=== PATIENT | male | born 1995 ===

== ENCOUNTER 2018-09-09 17:23 | Inpatient (IN) ==
[2018-09-09 18:59] LABS: Apearance,Urine CLEAR (Clear); Bilirubin,Urine Moderate mg/dL (Negative); Blood, Urine Negative (Negative); Glucose,Urine (UA) Negative (Negative); Ketones,Urine 20 mg/dL (Negative); Mucus,Urine Many /LPF (Occasional); Nitrite,Urine Negative (Negative); Protein,Urine 30 MG/DL; RBC,Urine 1 /HPF (0-4); Urine Color Amber (Yellow); Urine Specific Gravity 1.027 (1.001-1.035); WBC,Urine 4 /HPF (0-6)
[2018-09-09 19:03] LABS: Barbiturates Screen,Urine Negative (Negative); Benzodiazepines Screen,Urine Negative (Negative); Cannabinoid Screen,Urine Negative (Negative); Opiate Screen,Urine Negative (Negative); Phencyclidine Screen,Urine Negative (Negative)
[2018-09-09 19:09] LABS: Basophils # 0.1 10*3/uL (0.0-0.2); Basophils % 0.8 % (0.0-0.8); Eosinophils % 0.3 % (0.00-10.9); Hematocrit 48.6 VOL% (42.0-52.0); Hemoglobin 16.5 GM/DL (14.0-18.0); Immature Granulocytes % 0.2 %; Immature Granulocytes Absolute 0.01 #; Lymphocytes # 2.7 10*3/uL (1.4-4.0); Lymphocytes % 43.1 % (21.2-54.2); Mean Corpuscular Hemoglobin 29 PG (27-34); Mean Corpuscular Volume 85.9 FL (87-102); Mean Platelet Volume 9.8 FL (9.6-12.0); Monocytes # 0.6 10*3/uL (0.11-0.8); Monocytes % 9.6 % (1.7-12.7); Neutrophils # 2.8 10*3/uL (1.4-7.4); Platelet Count 284 T/CUMM (130-400); Red Blood Count 5.66 MC/CUMM (3.8-5.5); Red Cell Distribution Width 11.9 % (9.3-17.3); White Blood Count 6.2 T/CUMM (4-12)
[2018-09-09] MEDS ORDERED: ONDANSETRON 4 MG/2 ML VIAL IV PRN (19:28)
[2018-09-09] MEDS ORDERED: DOCUSATE SODIUM 100 MG CAPSULE PO PRN (19:28)
[2018-09-09 19:34] LABS: Albumin 4.3 G/DL (3.4-5.0); Bilirubin,Total 3.6 MG/DL (0.2-1.0); Calcium 9.7 MG/DL (8.5-10.1); Osmolality,Calculated 266.2 MOS/KG (273-304); Potassium 3.8 MMOL/L (3.5-5.1); Total Protein 8.2 G/DL (6.4-8.3)
[2018-09-09] MEDS: SODIUM CHLORIDE 0.9% 1,000 ML IV SCH (20:51)
[2018-09-09] MEDS: HYDROmorphone 2 MG/1 ML VIAL IV PRN (20:55)
[2018-09-10 05:07] LABS: Basophils # 0.1 10*3/uL (0.0-0.2); Basophils % 0.6 % (0.0-0.8); Eosinophils # 0.1 10*3/uL (0.0-0.87); Eosinophils % 0.8 % (0.00-10.9); Hematocrit 45.1 VOL% (42.0-52.0); Hemoglobin 15.1 GM/DL (14.0-18.0); Immature Granulocytes % 0.4 %; Immature Granulocytes Absolute 0.03 #; Lymphocytes # 3.9 10*3/uL (1.4-4.0); Lymphocytes % 50.5 % (21.2-54.2); Mean Corpuscular HGB Conc 33.5 GM/DL (32-36); Mean Corpuscular Hemoglobin 29 PG (27-34); Mean Corpuscular Volume 86.9 FL (87-102); Mean Platelet Volume 9.9 FL (9.6-12.0); Monocytes # 0.8 10*3/uL (0.11-0.8); Monocytes % 9.9 % (1.7-12.7); Neutrophils # 2.9 10*3/uL (1.4-7.4); Neutrophils % 37.8 % (38.7-73.9); Platelet Count 268 T/CUMM (130-400); Red Blood Count 5.19 MC/CUMM (3.8-5.5); Red Cell Distribution Width 11.9 % (9.3-17.3); White Blood Count 7.7 T/CUMM (4-12)
[2018-09-10 05:28] LABS: Hypochromasia 1+; Lymphocytes 53 % (20-55); Platelet Estimate Adequate; Segmented Neutrophils 43 % (50-85); Total Cells Counted 100
[2018-09-10 05:30] LABS: Albumin 3.5 G/DL (3.4-5.0); Calcium 9.5 MG/DL (8.5-10.1); Osmolality,Calculated 267.1 MOS/KG (273-304); Potassium 3.7 MMOL/L (3.5-5.1); Risk Ratio 5.11; Total Protein 7.4 G/DL (6.4-8.3)
[2018-09-10] MEDS: SODIUM CHLORIDE 0.9% 1,000 ML IV SCH ×2 (06:30→17:00)
[2018-09-10] MEDS: HYDROmorphone 2 MG/1 ML VIAL IV PRN ×4 (06:33→23:03)
[2018-09-10] MEDS: PANTOPRAZOLE 40 MG VIAL IV SCH (09:42)
[2018-09-10 20:05] LABS: Hepatitis A Ab IgM Quant 0.14 Index; Hepatitis A Ab IgM Result Negative (Negative); Hepatitis B Core IgM Quant 0.13 Index; Hepatitis B Core IgM Result Negative (Negative); Hepatitis B Surface Ag Quant < 0.10 Index; Hepatitis B Surface Ag Result Negative (Negative); Hepatitis C Virus Ab Quant 0.07 Index; Hepatitis C Virus Ab Result Negative (Negative)
[2018-09-11] MEDS: SODIUM CHLORIDE 0.9% 1,000 ML IV SCH ×2 (01:32→13:49)
[2018-09-11 05:14] LABS: Basophils # 0.1 10*3/uL (0.0-0.2); Basophils % 0.7 % (0.0-0.8); Eosinophils # 0.1 10*3/uL (0.0-0.87); Eosinophils % 1.3 % (0.00-10.9); Hematocrit 41.2 VOL% (42.0-52.0); Hemoglobin 13.9 GM/DL (14.0-18.0); Immature Granulocytes % 0.3 %; Immature Granulocytes Absolute 0.02 #; Lymphocytes # 3.8 10*3/uL (1.4-4.0); Lymphocytes % 55.4 % (21.2-54.2); Mean Corpuscular HGB Conc 33.7 GM/DL (32-36); Mean Corpuscular Hemoglobin 29 PG (27-34); Mean Corpuscular Volume 86.9 FL (87-102); Mean Platelet Volume 10.2 FL (9.6-12.0); Monocytes # 0.7 10*3/uL (0.11-0.8); Monocytes % 10.3 % (1.7-12.7); Neutrophils # 2.2 10*3/uL (1.4-7.4); Platelet Count 244 T/CUMM (130-400); Red Blood Count 4.74 MC/CUMM (3.8-5.5); Red Cell Distribution Width 11.9 % (9.3-17.3); White Blood Count 6.8 T/CUMM (4-12)
[2018-09-11 05:17] LABS: PT Patient Result 10.7 SECS
[2018-09-11 05:22] LABS: Albumin 3.3 G/DL (3.4-5.0); Bilirubin,Total 1.9 MG/DL (0.2-1.0); Calcium 8.6 MG/DL (8.5-10.1); Osmolality,Calculated 267.1 MOS/KG (273-304); Potassium 3.7 MMOL/L (3.5-5.1); Total Protein 6.7 G/DL (6.4-8.3)
[2018-09-11 05:35] LABS: Lymphocytes 55 % (20-55); Segmented Neutrophils 36 % (50-85); Total Cells Counted 100
[2018-09-11 05:36] LABS: Atypical Lymphocytes Few; Hypochromasia 1+; Platelet Estimate Adequate
[2018-09-11] MEDS: amLODIPine 10 MG TABLET PO SCH (08:24)
[2018-09-11] MEDS: PANTOPRAZOLE 40 MG VIAL IV SCH (09:06)
[2018-09-11] MEDS: HYDROmorphone 2 MG/1 ML VIAL IV PRN ×2 (09:34→19:40)
[2018-09-11] MEDS ORDERED: LIDOCAINE 2% 5 ML VIAL ONE (10:00)
[2018-09-11] MEDS ORDERED: ONDANSETRON 4 MG/2 ML VIAL ONE (10:00)
[2018-09-11] MEDS ORDERED: PROPOFOL 200 MG/20 ML VIAL IV ONE (10:00)
[2018-09-11] MEDS ORDERED: SEVOFLURANE 1 UNIT/15 MINUTE INH ONE ×2 (10:00→12:01)
[2018-09-11] MEDS ORDERED: SUCCINYLCHOLINE 200 MG/10 ML VIAL ONE (10:00)
[2018-09-11] MEDS ORDERED: fentaNYL 100 MCG/2 ML VIAL ONE ×2 (10:00→10:32)
[2018-09-11] MEDS ORDERED: ROCURONIUM 100 MG/10 ML VIAL IV ONE (10:00)
[2018-09-11] MEDS ORDERED: MIDAZOLAM 2 MG/2 ML VIAL ONE ×2 (10:00→10:32)
[2018-09-11] MEDS ORDERED: DEXAMETHASONE 4 MG/1 ML VIAL ONE (10:00)
[2018-09-11] MEDS ORDERED: INDOMETHACIN SUPP 50 MG SUPP RECTAL ONE (10:54)
[2018-09-11] MEDS ORDERED: GLUCAGON 1 MG VIAL ONE (11:01)
[2018-09-11] MEDS ORDERED: NEOSTIGMINE 10 MG/10 ML VIAL ONE (12:01)
[2018-09-11] MEDS ORDERED: amLODIPine 10 MG TABLET PO ONE (12:25)
[2018-09-11] MEDS ORDERED: LACTATED RINGERS 500 ML IV ONE (13:46)
[2018-09-12] MEDS: SODIUM CHLORIDE 0.9% 1,000 ML IV SCH ×3 (00:39→18:47)
[2018-09-12 05:01] LABS: Basophils % 0.2 % (0.0-0.8); Eosinophils % 0.1 % (0.00-10.9); Hemoglobin 14.3 GM/DL (14.0-18.0); Immature Granulocytes % 0.4 %; Immature Granulocytes Absolute 0.04 #; Lymphocytes # 2.3 10*3/uL (1.4-4.0); Lymphocytes % 23.2 % (21.2-54.2); Mean Corpuscular HGB Conc 33.3 GM/DL (32-36); Mean Corpuscular Hemoglobin 29 PG (27-34); Mean Corpuscular Volume 86.7 FL (87-102); Mean Platelet Volume 10.5 FL (9.6-12.0); Monocytes # 0.9 10*3/uL (0.11-0.8); Monocytes % 9.5 % (1.7-12.7); Neutrophils # 6.5 10*3/uL (1.4-7.4); Neutrophils % 66.6 % (38.7-73.9); Platelet Count 273 T/CUMM (130-400); Red Blood Count 4.96 MC/CUMM (3.8-5.5); Red Cell Distribution Width 11.8 % (9.3-17.3); White Blood Count 9.7 T/CUMM (4-12)
[2018-09-12 05:16] LABS: Albumin 3.5 G/DL (3.4-5.0); Bilirubin,Total 1.3 MG/DL (0.2-1.0); Calcium 8.4 MG/DL (8.5-10.1); Osmolality,Calculated 273.7 MOS/KG (273-304); Potassium 3.5 MMOL/L (3.5-5.1)
[2018-09-12] MEDS: amLODIPine 10 MG TABLET PO SCH (08:41)
[2018-09-12] MEDS: HYDROmorphone 2 MG/1 ML VIAL IV PRN ×3 (08:50→20:31)
[2018-09-12] MEDS: PANTOPRAZOLE 40 MG VIAL IV SCH (09:12)
[2018-09-12] MEDS ORDERED: LIDOCAINE 1% 20 ML VIAL ONE (14:00)
[2018-09-12] MEDS ORDERED: MEPERIDINE 25 MG/1 ML VIAL ONE (16:36)
[2018-09-12] MEDS ORDERED: PROPOFOL 200 MG/20 ML VIAL IV ONE (16:42)
[2018-09-12] MEDS ORDERED: SEVOFLURANE 1 UNIT/15 MINUTE INH ONE (16:42)
[2018-09-12] MEDS ORDERED: GLYCOPYRROLATE 0.4 MG/2 ML VIAL ONE (16:42)
[2018-09-12] MEDS ORDERED: KETOROLAC 30 MG/1 ML VIAL ONE (16:42)
[2018-09-12] MEDS ORDERED: MIDAZOLAM 2 MG/2 ML VIAL ONE (16:42)
[2018-09-12] MEDS ORDERED: ONDANSETRON 4 MG/2 ML VIAL ONE (16:42)
[2018-09-12] MEDS ORDERED: fentaNYL 100 MCG/2 ML VIAL ONE (16:42)
[2018-09-12] MEDS ORDERED: SODIUM CHLORIDE 0.9% 1,000 ML IV ONE (16:43)
[2018-09-12] MEDS ORDERED: ROCURONIUM 100 MG/10 ML VIAL IV ONE (16:43)
[2018-09-12] MEDS ORDERED: ACETAMINOPHEN 1,000 MG/100 ML VIAL IV ONE (16:43)
[2018-09-12] MEDS ORDERED: NEOSTIGMINE 10 MG/10 ML VIAL ONE (16:43)
[2018-09-12] MEDS ORDERED: LORazepam 2 MG/1 ML VIAL IV ONE (20:15)
[2018-09-13] MEDS: HYDROmorphone 2 MG/1 ML VIAL IV PRN ×3 (01:07→09:46)
[2018-09-13 05:35] LABS: Basophils # 0.1 10*3/uL (0.0-0.2); Basophils % 0.6 % (0.0-0.8); Eosinophils % 0.2 % (0.00-10.9); Hematocrit 39.8 VOL% (42.0-52.0); Hemoglobin 12.7 GM/DL (14.0-18.0); Immature Granulocytes % 0.2 %; Immature Granulocytes Absolute 0.02 #; Lymphocytes # 4.5 10*3/uL (1.4-4.0); Lymphocytes % 46.7 % (21.2-54.2); Mean Corpuscular HGB Conc 31.9 GM/DL (32-36); Mean Corpuscular Hemoglobin 29 PG (27-34); Mean Corpuscular Volume 90.2 FL (87-102); Mean Platelet Volume 10.8 FL (9.6-12.0); Monocytes # 0.9 10*3/uL (0.11-0.8); Monocytes % 9.1 % (1.7-12.7); Neutrophils # 4.2 10*3/uL (1.4-7.4); Neutrophils % 43.2 % (38.7-73.9); Platelet Count 224 T/CUMM (130-400); Red Blood Count 4.41 MC/CUMM (3.8-5.5); White Blood Count 9.7 T/CUMM (4-12)
[2018-09-13 06:03] LABS: Albumin 3.3 G/DL (3.4-5.0); Bilirubin,Total 0.9 MG/DL (0.2-1.0); Calcium 8.5 MG/DL (8.5-10.1); Osmolality,Calculated 271.7 MOS/KG (273-304); Potassium 3.5 MMOL/L (3.5-5.1); Total Protein 6.5 G/DL (6.4-8.3)
[2018-09-13] MEDS: PANTOPRAZOLE 40 MG VIAL IV SCH (08:10)
[2018-09-13] MEDS: amLODIPine 10 MG TABLET PO SCH (08:11)
[2018-09-13 08:38] VITALS: BP 130/79
[2018-09-13] MEDS: SODIUM CHLORIDE 0.9% 1,000 ML IV SCH (10:30)
== END 2018-09-13 11:38 | disposition home or self-care (01) | DRG 419 ==
LOC: N.ED 17:23 → N.EDINP 17:23 → N.3E 20:13
PROVIDERS: ADMIT Internal Medicine; ATTEND Internal Medicine
PROC: ERCPWSP (ICD-10-PCS; 2018-09-11 11:50)
PROC: LAPCHOL (2018-09-12 15:07)